=== PATIENT | male | born 1990 | race Two or more races ===

== ENCOUNTER 2017-09-22 04:48 | Emergency (ER) | payer MEDICAID, OTHER, SELFPAY ==
[~2017-09-22] VITALS: Ht 182.9 cm; Wt 85.5 kg
[2017-09-22] MEDS ORDERED: ONDANSETRON ODT 4 MG ONE (05:26)
[2017-09-22] MEDS ORDERED: ONDANSETRON ODT 4 MG PO ONE (05:30)
[2017-09-22 05:54] LABS: MICROSCOPIC AUTO
[2017-09-22 05:54] LABS: BASOPHILS # (AUTO) 0.03 x10^3/uL (0-0.1); BASOPHILS % (AUTO) 0 % (0-1); EOSINOPHILS # (AUTO) 0.08 x10^3/uL (0-0.4); EOSINOPHILS % (AUTO) 1 % (1-7); LYMPHOCYTES # (AUTO) 1.38 x10^3/uL (1-3.4); LYMPHOCYTES % (AUTO) 11 % (22-44); MD NO; MEAN CORPUSCULAR HEMOGLOBIN 28.4 pg (27.5-34.5); MEAN CORPUSCULAR HGB CONC 32.5 g/dL (33.2-36.2); MEAN CORPUSCULAR VOLUME 87.5 fL (81-97); MEAN PLATELET VOLUME 8.7 fL (7.4-10.4); MONOCYTES # (AUTO) 0.88 x10^3/uL (0.2-0.8); MONOCYTES % (AUTO) 7 % (2-9); NEUTROPHILS # (AUTO) 9.98 x10^3/uL (1.8-6.8); NEUTROPHILS % (AUTO) 81 % (42-75); PLATELET COUNT 215 x10^3/uL (130-400); RED BLOOD COUNT 5.34 x10^6/uL (4.38-5.82); RED CELL DISTRIBUTION WIDTH 13.7 % (9.4-14.8)
[2017-09-22 05:56] LABS: CULTURE INDICATED? NO
[2017-09-22 06:06] LABS: ALANINE AMINOTRANSFERASE 41 U/L (12-78); ALBUMIN 3.8 g/dL (3.4-5.0); ANION GAP 6 mmol/L (5-15); CALCIUM 8.6 mg/dL (8.5-10.1); CHLORIDE 110 mmol/L (98-107); CREATININE 1.57 mg/dL (0.7-1.3)
[2017-09-22 06:08] LABS: ALKALINE PHOSPHATASE 75 U/L (45-117); BILIRUBIN,TOTAL 0.4 mg/dL (0.2-1.0); TOTAL PROTEIN 7.1 g/dL (6.4-8.2)
[2017-09-22] MEDS ORDERED: ACETAMINOPHEN 325 MG TABLET ONE (06:29)
[2017-09-22] MEDS ORDERED: SODIUM CHLORIDE 0.9% 1,000ML IVBOLUS ONE (06:30)
[2017-09-22] MEDS ORDERED: ACETAMINOPHEN 325 MG TABLET PO ONE (06:30)
[2017-09-22 06:31] VITALS: BP 115/60
== END 2017-09-22 07:07 | disposition home or self-care (01) ==
LOC: ED 07:01
DX: E86.0 Dehydration (principal); R11.2 Nausea with vomiting, unspecified; R94.4 Abnormal results of kidney function studies
CPT/HCPCS: 36415; 80053; 81001; 83690; 85025; 96360; 99284; J7030; Q0162

== ENCOUNTER 2017-11-27 08:31 | Emergency (ER) | payer OTHER ==
[~2017-11-27] VITALS: Ht 182.9 cm; Wt 90.0 kg
[2017-11-27 08:33] VITALS: BP 117/70
[2017-11-27] MEDS ORDERED: KETOROLAC 30 MG/1 ML ONE (08:52)
[2017-11-27] MEDS ORDERED: KETOROLAC 30 MG/1 ML IM ONE (09:00)
== END 2017-11-27 09:40 | disposition home or self-care (01) ==
LOC: ED 09:34
DX: S93.492A Sprain of other ligament of left ankle, initial encounter (principal); W01.0XXA Fall on same level from slipping, tripping and stumbling without subsequent striking against object, initial encounter; Y93.01 Activity, walking, marching and hiking; Y92.009 Unspecified place in unspecified non-institutional (private) residence as the place of occurrence of the external cause; Y99.8 Other external cause status
CPT/HCPCS: 73610; 96372; 99284; J1885

== ENCOUNTER 2018-09-10 08:47 | Emergency (ER) | payer SELFPAY ==
[~2018-09-10] VITALS: Ht 182.9 cm; Wt 93.6 kg
[2018-09-10] MEDS ORDERED: ONDANSETRON ODT 4 MG ONE (09:53)
[2018-09-10] MEDS ORDERED: MAALOX/HYOSCYAMINE/LIDOCAINE 45 ML BTL ONE (09:53)
[2018-09-10 09:56] LABS: BASOPHILS # (AUTO) 0.04 x10^3/uL (0-0.1); BASOPHILS % (AUTO) 0 % (0-1); EOSINOPHILS # (AUTO) 0.08 x10^3/uL (0-0.4); EOSINOPHILS % (AUTO) 1 % (1-7); LYMPHOCYTES # (AUTO) 3.02 x10^3/uL (1-3.4); LYMPHOCYTES % (AUTO) 32 % (22-44); MD NO; MEAN CORPUSCULAR HEMOGLOBIN 28.8 pg (27.5-34.5); MEAN CORPUSCULAR HGB CONC 32.5 g/dL (33.2-36.2); MEAN CORPUSCULAR VOLUME 88.7 fL (81-97); MEAN PLATELET VOLUME 8.6 fL (7.4-10.4); MONOCYTES # (AUTO) 0.64 x10^3/uL (0.2-0.8); MONOCYTES % (AUTO) 7 % (2-9); NEUTROPHILS # (AUTO) 5.78 x10^3/uL (1.8-6.8); NEUTROPHILS % (AUTO) 60 % (42-75); PLATELET COUNT 258 x10^3/uL (130-400); RED CELL DISTRIBUTION WIDTH 16.3 % (9.4-14.8)
[2018-09-10] MEDS ORDERED: MAALOX/HYOSCYAMINE/LIDOCAINE 45 ML BTL PO ONE (10:00)
[2018-09-10] MEDS ORDERED: ONDANSETRON ODT 4 MG PO ONE (10:00)
--- NOTE | 2018-09-10 10:00 | NUR ---
bedside us in progress
[2018-09-10 10:06] LABS: ALANINE AMINOTRANSFERASE 59 U/L (12-78); ALBUMIN 3.6 g/dL (3.4-5.0); ANION GAP 5 mmol/L (5-15); CALCIUM 8.6 mg/dL (8.5-10.1); CHLORIDE 107 mmol/L (98-107); CREATININE 1.81 mg/dL (0.7-1.3)
[2018-09-10 10:11] LABS: ALKALINE PHOSPHATASE 91 U/L (45-117); BILIRUBIN,TOTAL 0.4 mg/dL (0.2-1.0); TOTAL PROTEIN 7.2 g/dL (6.4-8.2); TROPONIN I < 0.015 ng/mL (0.000-0.045)
[2018-09-10 12:22] VITALS: BP 122/76
--- NOTE | 2018-09-10 12:23 | NUR ---
FLOAT RN AT BEDSIDE TO DC PT FOR PRIMARY RN, EVERETTE. PT VERBALIZED UNDERSTANDING TO DC INSTRUCTIONS, AMBULATORY TO CHECKOUT C STEADY GAIT.
== END 2018-09-10 12:24 | disposition home or self-care (01) ==
LOC: ED 10:47
DX: K52.9 Noninfective gastroenteritis and colitis, unspecified (principal); K29.00 Acute gastritis without bleeding
CPT/HCPCS: 36415; 76700; 80053; 83690; 84484; 85025; 93005; 99284; Q0162